=== PATIENT | male | born 1985 | race Caucasian/White ===

== ENCOUNTER 2016-05-22 17:06 | Emergency (ER) | payer SELFPAY ==
[~2016-05-22 17:06] MED LIST: Sodium Chloride 0.9% 1,000 ML BAG ONE
[2016-05-22 18:22] LABS: #Basophils 0.1 thou/uL (0.0-0.2); #Lymphocytes 1.1 thou/uL (1.20-3.40); #Monocytes 0.6 thou/uL (0.11-0.59); #Neutrophils 7.2 thou/uL (1.40-6.50); %Basophils 0.7 % (0.0-1.0); %Eosinophils 0.3 % (0.0-10.0); %Lymphocytes 12.5 % (21.0-51.0); %Monocytes 6.5 % (0.0-10.0); %Neutrophils 79.9 % (42.0-75.0); Hemoglobin 13.8 g/dL (14.0-18.0); Mean Corpuscular HGB CONC 34.1 g/dL (32.0-36.0); Mean Corpuscular Hemoglobin 30.6 pg (27.0-31.0); Mean Corpuscular Volume 89.7 fl (80.0-94.0); Mean Platelet Volume 6.6 fL (7.4-10.4); Platelet Count 215 thou/uL (130-400); RBC Distribution Width 11.1 % (11.5-14.5); Red Blood Cell (RBC) Count 4.52 mill/uL (4.70-6.10); White Blood Cell (WBC) Count 8.9 thou/uL (4.8-10.8)
[2016-05-22 18:23] LABS: Bilirubin Negative (Negative); Blood, Urine Negative (Negative); Clarity Clear (Clear); Glucose, Urine (Dipstick) Negative (Negative); Leukocyte Negative (Negative); Nitrite Negative (Negative); Protein, Urine (Dipstick) Negative (Neg-Trace); Urobilinogen 0.2 mg/dL (0.2-1.0)
[2016-05-22 18:48] LABS: ALT (SGPT) 16 U/L (0-55); AST (SGOT) 17 U/L (5-34); Albumin 4.6 g/dL (3.5-5.0); Alcohol Less than 10 mg/dL (Less than 10); Alkaline Phosphatase 81 U/L (40-150); Amphetamine Not Detected (NotDetected); Anion Gap 15 mmol/L (10-20); BUN (Urea Nitrogen) 14 mg/dL (8.9-20.6); Barbiturates Screen Not Detected (NotDetected); Benzodiazepine Screen Not Detected (NotDetected); Bilirubin, Total 0.5 mg/dL (0.2-1.2); Calc. Creatinine Clearance 0 mL/min (70-130); Calcium 9.5 mg/dL (7.8-10.44); Carbon Dioxide 25 mmol/L (22-29); Chloride 103 mmol/L (98-107); Cocaine Metabolite Screen Not Detected (NotDetected); Estimated GFR-MDRD Greater than 90; Globulin 2.7 g/dL (2.4-3.5); Glucose 125 mg/dL (70-105); Medtox Control Line Valid? VALID (VALID); Methadone Not Detected (NotDetected); Methamphetamine Not Detected (NotDetected); Opiate Screen Not Detected (NotDetected); Oxycodone Screen Not Detected (NotDetected); Phencyclidine (PCP) Not Detected (NotDetected); Potassium 3.5 mmol/L (3.5-5.1); Protein, Total 7.3 g/dL (6.0-8.3); Salicylate Less than 5.0 mg/dL (15.0-30.0); Sodium 139 mmol/L (136-145); THC/Cannabinoid Screen Not Detected (NotDetected); Tricyclic Screen Not Detected (NotDetected)
[2016-05-22 19:03] LABS: Acetaminophen Less than 3.0 mcg/mL (10.0-30.0)
== END 2016-05-23 02:15 ==
LOC: MADERS 17:06
DX: F20.9 Schizophrenia, unspecified (principal); Z79.899 Other long term (current) drug therapy
CPT/HCPCS: 36415; 80053; 80306; 80307; 81003; 85025; 96360; J7050